=== PATIENT | female | born 1975 | race Caucasian/White ===

== ENCOUNTER 2021-02-25 16:54 | Emergency (ER) | payer MEDICAID ==
--- NOTE | 2021-02-25 17:04 | EDM.PDOC ---
ED HPI GENERAL MEDICAL PROBLEM - General Stated Complaint: LEFT KNEE INJURY Time Seen by Provider: 02/25/21 16:55 Source of Information: Reports: Patient History Limitations: Reports: No Limitations - History of Present Illness INITIAL COMMENTS - FREE TEXT/NARRATIVE: 46-year-old female who reports beginning about 2 months ago she developed pain in her left knee. She reports the pain is mostly over the back part of her knee but it does wrap around to the front of her knee and it is worse with movement or walking. She feels that there is some cracking and popping in the area and that it feels unstable at times. She has had no injury. There is been no redness or swelling noted to the area. Today she was going up some steps and then she felt some cracking and popping in the knee and the pain in her knee got much worse and now she reports the pain as a 10/10. She did not have any direct trauma to the knee. She states she has taken Tylenol and ibuprofen without any relief. Earlier today and just was not relenting and that caused her to come to the emergency department for evaluation. There are no other associated signs or symptoms. There are no other modifying factors. Onset: Other (Has had the problem for 2 months or longer but today it seemed to be getting worse.) Duration: Getting Worse Location: Reports: Lower Extremity, Left (Left knee) Quality: Reports: Ache, Sharp, Throbbing Severity: Severe Improves with: Reports: Rest Worsens with: Reports: Other (Patient), Movement Context: Reports: Other (As above.) Associated Symptoms: Reports: No Other Symptoms Treatments [employer]ER: Reports: Acetaminophen, NSAIDS Left Knee Pain Score (Numeric/FACES): 10 - Related Data Allergies Allergy/AdvReac Type Severity Reaction Status Date / Time No Known Allergies Allergy Verified 02/25/21 17:22 Home Meds: Home Meds traMADol [Ultram] 50 mg PO Q6H PRN #12 tab 02/25/21 [Rx] Past Medical History Psychiatric History: Reports: Anxiety, Depression - Past Surgical History GI Surgical History: Reports: Cholecystectomy Female Surgical History: Reports: Hysterectomy, Tubal Ligation Social & Family History - Tobacco Use Tobacco Use Status *Q: Current Every Day Tobacco User - Alcohol Use Alcohol Use History: No Review of Systems - Review of Systems Review Of Systems: See Below Constitutional: Denies: Chills, Fever Eyes: Denies: Blurred Vision, Pain Ears: Denies: Pain, Tinnitus Nose: Denies: Congestion, Pain Mouth/Throat: Denies: Throat Swelling, Painful Swallowing Respiratory: Denies: Shortness of Breath, Cough Cardiovascular: Denies: Chest Pain, Lightheadedness GI/Abdominal: Denies: Nausea, Vomiting Genitourinary: Denies: Dysuria, Hematuria Musculoskeletal: Reports: Joint Pain (Left knee pain). Denies: Neck Pain, Arm Pain, Joint Swelling Skin: Reports: Other (No increased warmth.). Denies: Bruising, Rash Neurological: Denies: Dizziness, Headache ED EXAM, GENERAL - Physical Exam Exam: See Below Exam Limited By: No Limitations General Appearance: Alert, WD/WN, No Apparent Distress Eye Exam: Bilateral Eye: EOMI, Normal Inspection Ears: Normal External Exam, Hearing Grossly Normal Ear Exam: Bilateral Ear: Auricle Normal Nose: Normal Inspection, Normal Mucosa, No Blood Throat/Mouth: Normal Oropharynx, Normal Voice, No Airway Compromise Head: Atraumatic, Normocephalic Neck: Normal Inspection, Supple, Non-Tender, Full Range of Motion Respiratory/Chest: No Respiratory Distress, Lungs Clear, Normal Breath Sounds, No Accessory Muscle Use, Chest Non-Tender Cardiovascular: Normal Peripheral Pulses, Regular Rate, Rhythm, No Murmur Peripheral Pulses: 2+: Radial (L), Radial (R), Dorsalis Pedis (L), Dorsalis Pedis (R) GI/Abdominal: Normal Bowel Sounds, Soft, Non-Tender Back Exam: Normal Inspection, Full Range of Motion. No: CVA Tenderness (R), CVA Tenderness (L) Extremities: No Pedal Edema, Normal Capillary Refill, Other (Pain in the posterior aspect of the left knee. There is no effusion noted. There is no ligamentous laxity noted. There is range of motion despite her pain and it appears to be full. No crepitus noted. No clicks. She does have pain with movement.). No: Joint Swelling, Ajay's Sign Neurological: Alert, Oriented, CN II-XII Intact, Normal Cognition, No Motor/ Sensory Deficits Skin Exam: Warm, Dry, Intact, Normal Color, No Rash. No: Erythema, Increased Warmth Course - Vital Signs Last Recorded V/S: Last Vital Signs Temp 37.2 C 02/25/21 18:30 Pulse 76 02/25/21 18:30 Resp 18 02/25/21 18:30 BP 149/100 H 02/25/21 18:30 Pulse Ox 97 02/25/21 18:30 - Orders/Labs/Meds Meds: Medications Discontinued Medications Generic Name Dose Route Start Last Admin Trade Name Maycol PRN Reason Stop Dose Admin Ketorolac Tromethamine 30 mg 02/25/21 17:45 02/25/21 17:51 Ketorolac 30 Mg/Ml Sdv IM 02/25/21 17:46 30 mg ONETIME ONE Administration - Radiology Interpretation Free Text/Narrative:: X-ray of left knee shows no fracture or malalignment per my read. - Re-Assessments/Exams Free Text/Narrative Re-Assessment/Exam: 02/25/21 19:05: The x-ray of the left knee shows no fracture or dislocation. From her history, this could either be a ligamentous or meniscal type injury or it could be related to a Beyer's cyst. She has preciously that I think would be useful for her to use. We will also give her crutches for use and nonweightbearing on her left leg. She is to follow-up with Lida Torres NP at the walk-in clinic as she may need orthopedic referral. She can take ibuprofen and Tylenol as needed for pain. I will give her a prescription of tramadol that she can use for moderate to severe pain. Departure - Departure Time of Disposition: 19:40 Disposition: Home, Self-Care 01 Condition: Good Clinical Impression: Internal derangement of right knee Right knee pain Qualifiers: Chronicity: acute Qualified Code(s): M25.561 - Pain in right knee - Discharge Information Prescriptions: traMADol [Ultram] 50 mg PO Q6H PRN #12 tab PRN Reason: Moderate to severe pain Instructions: Crutch Use, Adult, [id number], Acute Knee Pain, Adult, [id number] Referrals: Lida Torres NP [Physician] - Forms: ED Department Discharge Additional Instructions: The x-ray of your left knee showed no fracture or anything out of alignment. I suspect that you have either an injury to your ligaments or your meniscus or you could possibly also have a Beyer's cyst behind the left knee. Use the compression sleeve that you have for comfort and support. Crutches with no to limited weightbearing on your left leg. You can take ibuprofen and Tylenol as needed for pain. Patient is prescribed for more severe pain (tramadol 50 mg). Follow-up with Lida Torres at the walk-in clinic. You may need a referral to a bone specialist and she should be able to arrange this for you if needed. Back to the emergency department for fever, redness, any signs of infection or any other concerning signs or symptoms.
[2021-02-25] MEDS ORDERED: Ketorolac 30 MG/ML SDV IM ONE (17:45)
--- NOTE | 2021-02-26 13:20 | CR ---
INDICATION: Pop in left knee, now with pain. LEFT KNEE: Frontal and lateral views of the left knee revealed prominence at the suprapatellar bursa raising question of a knee joint effusion of small size. This should be correlated clinically. No other bone or joint abnormality was suggested. MTDD
== END 2021-02-25 19:00 | disposition home or self-care (01) ==
LOC: FB.ED 16:54
DX: M23.91 Unspecified internal derangement of right knee (principal); Z72.0 Tobacco use
CPT/HCPCS: 73560; 96372; 99283; J1885

== ENCOUNTER 2022-05-08 16:32 | Emergency (ER) | payer MEDICAID | END 2022-05-08 17:36 | disposition home or self-care (01) | LOC: FB.ED 16:32 | DX: L24.9 Irritant contact dermatitis, unspecified cause (principal); Z96.652 Presence of left artificial knee joint; Z79.899 Other long term (current) drug therapy; Z79.82 Long term (current) use of aspirin; Z90.49 Acquired absence of other specified parts of digestive tract; Z90.710 Acquired absence of both cervix and uterus | CPT/HCPCS: 99282 ==

== ENCOUNTER 2022-05-11 13:32 | Emergency (ER) | payer MEDICAID ==
[2022-05-11] MEDS ORDERED: Ondansetron 4 MG Tab.DIS PO ONE (14:12)
[2022-05-11] MEDS ORDERED: Ketorolac 30 MG/ML SDV IM ONE (14:29)
[2022-05-11 14:40] LABS: ESTIMATED GFR 91 mL/min (>60)
[2022-05-11] MEDS ORDERED: Labetalol 200 MG Tab PO ONE (15:05)
[2022-05-11] MEDS ORDERED: cefTRIAXone 1 GM Vial IM ONE (15:40)
[2022-05-11] MEDS ORDERED: cefTRIAXone 1 GM Vial ONE (15:42)
== END 2022-05-11 15:49 | disposition home or self-care (01) ==
LOC: FB.ED 13:32
DX: M25.562 Pain in left knee (principal); R00.0 Tachycardia, unspecified; I10 Essential (primary) hypertension; D72.829 Elevated white blood cell count, unspecified; D75.839 Thrombocytosis, unspecified; E78.00 Pure hypercholesterolemia, unspecified; F17.210 Nicotine dependence, cigarettes, uncomplicated; Z79.82 Long term (current) use of aspirin; Z96.652 Presence of left artificial knee joint
CPT/HCPCS: 36415; 80053; 85025; 86140; 96372; 99284; A9270; J0696; J1885; Q0162